=== PATIENT | male | born 1965 | race Caucasian/White ===

== ENCOUNTER 2018-11-29 08:19 | Outpatient (CLI) | payer OTHER ==
[2018-11-29 09:06] LABS: Hemoglobin 16.6 g/dL (14.0-18.0); Mean Corpuscular HGB CONC 32.2 g/dL (32.0-36.0); Mean Platelet Volume 7.6 fL (7.4-10.4); Platelet Count 270 thou/uL (130-400); Red Blood Cell (RBC) Count 5.74 mill/uL (4.70-6.10); White Blood Cell (WBC) Count 5.4 thou/uL (4.8-10.8)
[2018-11-29 09:28] LABS: Anion Gap 16 mmol/L (10-20); BUN (Urea Nitrogen) 21 mg/dL (8.4-25.7); Calc. Creatinine Clearance 0 mL/min (70-130); Calcium 10.2 mg/dL (7.8-10.44); Carbon Dioxide 22 mmol/L (22-29); Chloride 105 mmol/L (98-107); Estimated GFR-MDRD 65; Glucose 127 mg/dL (70-105); Potassium 4.5 mmol/L (3.5-5.1); Sodium 138 mmol/L (136-145)
--- NOTE | 2018-11-30 07:01 | EKG ---
Test Reason : Blood Pressure : / mmHG Vent. Rate : 097 BPM Atrial Rate : 110 BPM P-R Int : 000 ms QRS Dur : 090 ms QT Int : 346 ms P-R-T Axes : 000 050 027 degrees QTc Int : 439 ms Atrial fibrillation Possible Anterior infarct , age undetermined (Doubtful) Abnormal ECG No previous ECGs available Confirmed by REENA LAN ([id number]) on 11/30/2018 7:00:58 AM Referred By: JOHNSON Confirmed By:REENA LAN
== END 2018-11-29 08:20 | disposition home or self-care (01) ==
LOC: LABBT 08:19
PROVIDERS: ATTEND Orthopaedic Surgery
DX: Z01.818 Encounter for other preprocedural examination (principal); S43.431A Superior glenoid labrum lesion of right shoulder, initial encounter; S43.081A Other subluxation of right shoulder joint, initial encounter; M75.101 Unspecified rotator cuff tear or rupture of right shoulder, not specified as traumatic; M75.41 Impingement syndrome of right shoulder
CPT/HCPCS: 80048; 85027; 93005; 93010

== ENCOUNTER 2018-12-04 10:37 | Day surgery (SDC) | payer OTHER ==
[2018-12-04] MEDS ORDERED: Midazolam HCl 2 mg/2 ml Vial ONE (11:34)
[2018-12-04] MEDS ORDERED: Fentanyl 100 MCG/2 ML VIAL ONE (11:34)
[2018-12-04] MEDS ORDERED: Zolpidem Tartrate 5 MG TAB PO PRN (12:13)
[2018-12-04] MEDS ORDERED: Ropivacaine 0.2% 550 ML 550 ML NERVE BLCK SCH (12:13)
[2018-12-04] MEDS ORDERED: traMADol HCl 50 MG TAB PO PRN ×2 (12:13)
[2018-12-04] MEDS ORDERED: Promethazine HCl 25 MG/ML VIAL IM PRN (12:13)
[2018-12-04] MEDS ORDERED: Ondansetron PF 4 MG/2 ML Vial IVP PRN (12:13)
[2018-12-04] MEDS ORDERED: HYDROcodone/Acetaminophen 10/325 mg Tablet PO PRN ×2 (12:13)
[2018-12-04] MEDS ORDERED: Fentanyl 100 MCG/2 ML VIAL IV PRN (12:14)
[2018-12-04] MEDS ORDERED: Ropivacaine 0.2% HCl/PF (40 MG/20 ML VIAL) ONE (14:45)
[2018-12-04] MEDS ORDERED: Ropivacaine 0.5% HCl/PF (150 MG/30 ML VIAL) ONE (14:45)
[2018-12-04] MEDS ORDERED: Rocuronium Bromide 10 MG/ML (10ML VIAL) ONE (15:20)
[2018-12-04] MEDS ORDERED: Ketorolac Tromethamine 30 MG/ML VIAL ONE (15:20)
[2018-12-04] MEDS ORDERED: Dexamethasone 20 MG/5 ML VIAL ONE (15:20)
[2018-12-04] MEDS ORDERED: Ondansetron PF 4 MG/2 ML Vial ONE (15:20)
[2018-12-04] MEDS ORDERED: PROPOFOL 200 MG/20 ML VIAL ONE (15:20)
[2018-12-04] MEDS ORDERED: Metoprolol Tartrate 5 MG/5 ML VIAL ONE (15:20)
[2018-12-04] MEDS ORDERED: Glycopyrrolate 0.2 MG/ML 5 ML SYRINGE ONE (15:20)
--- NOTE | 2018-12-04 16:29 | OP ---
DATE OF PROCEDURE: 12/04/2018 PREOPERATIVE DIAGNOSES: 1. Large rotator cuff tear of the right shoulder. 2. Right biceps tendonitis. 3. Tearing of the superior and posterior labrum. POSTOPERATIVE DIAGNOSES: 1. Large rotator cuff tear of the right shoulder. 2. Right biceps tendonitis. 3. Tearing of the superior and posterior labrum. 4. [id number] arthritis of the shoulder joint. PROCEDURES PERFORMED: 1. Arthroscopy of the right shoulder with shaving of the torn labrum. 2. Open biceps tenodesis. 3. Open subacromial decompression, rotator cuff repair. ANESTHESIA: General. DESCRIPTION OF PROCEDURE: The patient was given preoperative IV antibiotics, taken to the operating room, placed in the supine position. Satisfactory general anesthesia was performed. The patient was then placed in the left lateral decubitus position. All bony prominences were well padded. The right upper extremity was placed in 15 pounds of traction. The right shoulder and arm were sterilely prepped and draped in the usual fashion. The shoulder was initially arthroscoped through the posterior portal and instrumentation through the anterior portal. The patient was noted to have fairly severe arthritis in the shoulder joint with loss of articular cartilage space in the midportion of the glenoid and portions of the humeral head. There was significant synovitis and partial synovectomy was performed. There was severe biceps tendonitis and tearing and fraying of the superior and posterior superior labrum. A shaver was used to debride the tears of the labrum. Some of the labrum had calcified and was removed with a grasper. An open biceps tenodesis was performed after detaching the biceps tendon, grabbing the biceps tendon with a suture and then tenodesis was performed using an 8-mm Arthrex screw. The subacromial space was then entered and there were significant scarring and synovitis and large rotator cuff tear from the supraspinatus. There was also multiple tears within the tear. A lateral incision was made. Deltoid muscle was split and subacromial decompression was performed by removing significant amount of bursitis. The subacromial decompression was performed using first a Bovie and ArthroWand and then a adebayo, and the rotator cuff was repaired using a double row of 4.75 Arthrex anchors and using FiberTape. This provided excellent repair of the rotator cuff. Fortunately, it had good mobility. After the repair was made, the wounds were again irrigated. The wounds were closed using 0 Vicryl for the fascia over the deltoid muscle and then 0 Vicryl for the fat and subcutaneous tissues and skin was closed with 3-0 repeat. Sterile dressing was applied. The patient was taken out of traction. He was placed in the supine position, awakened, extubated, and transferred to Recovery Room in stable condition. ESTIMATED BLOOD LOSS: Minimal. COMPLICATIONS: None. The patient will be placed in a shoulder immobilizer. He is to avoid any active range of motion of the shoulder or the elbow. DISCHARGE MEDICATIONS: Tylenol No. 4 one every 4 to 6 hours as needed for pain #50 with one refill. Follow up in my office in 1 week. Job ID: [id number]
[2018-12-04] MEDS ORDERED: Ketorolac Tromethamine 30 MG/ML VIAL IVP SCH (18:00)
== END 2018-12-04 18:30 | disposition home or self-care (01) ==
LOC: SDC 10:37
PROVIDERS: ATTEND Orthopaedic Surgery
PROC: 0LQ10ZZ Repair Right Shoulder Tendon, Open Approach (ICD-10-PCS; principal; 2018-12-04)
PROC: 0LS10ZZ Reposition Right Shoulder Tendon, Open Approach (ICD-10-PCS; principal; 2018-12-04)
DX: S46.011A Strain of muscle(s) and tendon(s) of the rotator cuff of right shoulder, initial encounter (principal); S46.111A Strain of muscle, fascia and tendon of long head of biceps, right arm, initial encounter; S43.431A Superior glenoid labrum lesion of right shoulder, initial encounter; M75.41 Impingement syndrome of right shoulder; M19.011 Primary osteoarthritis, right shoulder; G47.30 Sleep apnea, unspecified; I48.91 Unspecified atrial fibrillation; I10 Essential (primary) hypertension; E66.9 Obesity, unspecified; Z79.82 Long term (current) use of aspirin; Z79.899 Other long term (current) drug therapy; Z68.41 Body mass index [BMI] 40.0-44.9, adult
CPT/HCPCS: A4306; C1713; J1100; J1885; J2250; J2405; J2704; J2795; J3010

== ENCOUNTER 2021-10-08 12:08 | Inpatient (IN) | payer BC ==
[2021-10-08] MEDS ORDERED: Fentanyl CADD 100 ML IV SCH ×2 (12:15→14:15)
[2021-10-08 12:18] LABS: Actual Bicarbonate (HCO3a) 19.2 mEq/L (22-28); Analyzer IN Cardio ER; CO2 Tension 59.4 mmHg (35.0-45.0); Calcium, Ionized (arterial) 1.21 mmol/L (1.12-1.30); Carboxyhemoglobin (COHb) 0.5 gm% (0.0-3.0); Potassium - ABG Lab 3.63 mmol/L (3.70-5.30)
[2021-10-08 12:20] LABS: O2 Tension (PaO2), arterial 58.8 mmHg (80.0-100.0); Puncture Site RRA; pH, Arterial 7.13 (7.35-7.45)
[2021-10-08 12:59] LABS: Anion Gap 21 mmol/L (10-20); BUN (Urea Nitrogen) 21 mg/dL (8.4-25.7); Calc. Creatinine Clearance 0 mL/min (70-130); Calcium 9.7 mg/dL (7.8-10.44); Carbon Dioxide 15 mmol/L (22-29); Chloride 105 mmol/L (98-107); Glucose 269 mg/dL (70-105); Potassium 4.3 mmol/L (3.5-5.1); Sodium 137 mmol/L (136-145)
[2021-10-08] MEDS ORDERED: Ventilator Sedation Protocol 1 EACH FS SCH (13:00)
[2021-10-08] MEDS ORDERED: HUMULIN R 100 UNITS in Sodium Chloride 0.9% 100 ML IVPB SCH (13:00)
[2021-10-08] MEDS ORDERED: Norepinephrine 8 MG/0.9% NS 250 ML IVPB PRN (13:00)
[2021-10-08 13:38] LABS: Troponin I 2.123 ng/mL (< 0.028)
[2021-10-08 14:04] LABS: SARS-CoV-2 NAA Rapid Test Not Detected (NotDetected)
[2021-10-08] MEDS ORDERED: DISCONTINUE PREVIOUS NARCOTIC PAIN MEDICATIONS AND BENZODIAZEPINES FS SCH (14:15)
[2021-10-08] MEDS ORDERED: Propofol 1,000 MG/100 ML VIAL IV PRN (14:15)
[2021-10-08] MEDS ORDERED: Propofol BOLUS 1,000 MG/100 ML VIAL IV PRN (14:15)
[2021-10-08] MEDS ORDERED: Fentanyl BOLUS 250 ML IVPB PRN (14:15)
[2021-10-08] MEDS ORDERED: Lorazepam 2 MG/ML VIAL SLOW IVP PRN (14:15)
[2021-10-08] MEDS ORDERED: Morphine 2 MG/ML VIAL SLOW IVP PRN (14:15)
[2021-10-08 14:35] LABS: Acetaminophen Less than 6.0 mcg/mL (10.0-30.0); Alcohol Less than 10 mg/dL (Less than 10); Salicylate Less than 8.0 mg/dL (15.0-30.0)
[2021-10-08 14:37] LABS: ALT (SGPT) 237 U/L (8-55); AST (SGOT) 310 U/L (5-34); Albumin 3.5 g/dL (3.5-5.0); Alkaline Phosphatase 130 U/L (40-110); Anion Gap 22 mmol/L (10-20); BUN (Urea Nitrogen) 22 mg/dL (8.4-25.7); Bilirubin, Total 0.5 mg/dL (0.2-1.2); Calc. Creatinine Clearance 0 mL/min (70-130); Calcium 9.4 mg/dL (7.8-10.44); Carbon Dioxide 16 mmol/L (22-29); Chloride 104 mmol/L (98-107); Globulin 3.7 g/dL (2.4-3.5); Glucose 212 mg/dL (70-105); Potassium 3.6 mmol/L (3.5-5.1); Protein, Total 7.2 g/dL (6.0-8.3); Sodium 138 mmol/L (136-145)
[2021-10-08 14:38] LABS: Lactic Acid 9.4 mmol/L (0.5-2.2)
[2021-10-08 14:46] LABS: Troponin I 4.502 ng/mL (< 0.028)
[2021-10-08 15:29] LABS: Actual Bicarbonate (HCO3a) 15.1 mEq/L (22-28); Base Excess (BEa) -9.9 mEq/L (-2.0 to +3.0); CO2 Tension 31.7 mmHg (35.0-45.0); Calcium, Ionized (arterial) 1.14 mmol/L (1.12-1.30); Carboxyhemoglobin (COHb) 0.2 gm% (0.0-3.0); Hemoglobin (Hb) 18.6 g/dL (14.0-18.0); Potassium - ABG Lab 3.32 mmol/L (3.70-5.30); Puncture Site LRA
[2021-10-08 15:30] LABS: ALV-art Gradient 445.775 mmHg (0-20)
[2021-10-08] MEDS ORDERED: Famotidine/PF 20 mg/2ml Vial SLOW IVP SCH (15:45)
[2021-10-08] MEDS: Amiodarone 450 MG in Dextrose 5% in Water 250 ML IVPB SCH (15:56)
[2021-10-08] MEDS: Lactated Ringer's 1,000 ML IV SCH ×2 (15:57→22:57)
[2021-10-08 17:26] LABS: Amphetamine Not Detected (NotDetected); Barbiturates Screen Not Detected (NotDetected); Benzodiazepine Screen Not Detected (NotDetected); Cocaine Metabolite Screen Not Detected (NotDetected); Methadone Not Detected (NotDetected); Methamphetamine Not Detected (NotDetected); Opiate Screen Not Detected (NotDetected); Oxycodone Screen Not Detected (NotDetected); Phencyclidine (PCP) Not Detected (NotDetected); THC/Cannabinoid Screen Not Detected (NotDetected); Tricyclic Screen Not Detected (NotDetected)
[2021-10-08] MEDS ORDERED: FLU VACC QS2021-22(6MOS UP)/PF 60 MCG/0.5 ML SYRINGE IM ONE (17:30)
[2021-10-08 18:07] LABS: Lactic Acid 13.2 mmol/L (0.5-2.2)
[2021-10-08] MEDS: Famotidine/PF 20 mg/2ml Vial SLOW IVP SCH (20:12)
[2021-10-08 20:38] LABS: Troponin I 11.361 ng/mL (< 0.028)
[2021-10-09] MEDS: Amiodarone 450 MG in Dextrose 5% in Water 250 ML IVPB SCH (01:47)
[2021-10-09] MEDS: Lactated Ringer's 1,000 ML IV SCH ×2 (02:01→10:44)
[2021-10-09 04:32] LABS: ALT (SGPT) 229 U/L (8-55); AST (SGOT) 337 U/L (5-34); Albumin 3.3 g/dL (3.5-5.0); Alkaline Phosphatase 62 U/L (40-110); Anion Gap 18 mmol/L (10-20); BUN (Urea Nitrogen) 34 mg/dL (8.4-25.7); Bilirubin, Total 0.6 mg/dL (0.2-1.2); Calc. Creatinine Clearance 59 mL/min (70-130); Calcium 9.3 mg/dL (7.8-10.44); Carbon Dioxide 19 mmol/L (22-29); Chloride 105 mmol/L (98-107); Globulin 3.2 g/dL (2.4-3.5); Glucose 149 mg/dL (70-105); Potassium 4.2 mmol/L (3.5-5.1); Protein, Total 6.5 g/dL (6.0-8.3); Sodium 138 mmol/L (136-145)
[2021-10-09 05:00] LABS: Band 35 % (5-11); Hemoglobin 17.1 g/dL (14.0-18.0); Lymphocytes 11 % (21-51); MDiff Complete? YES; Mean Corpuscular HGB CONC 32.9 g/dL (32.0-36.0); Mean Corpuscular Hemoglobin 30.3 pg (27.0-31.0); Mean Platelet Volume 7.4 fL (7.4-10.4); Monocytes 6 % (0-10); Neutrophil 48 % (42-75); Platelet Count 264 thou/uL (130-400); RBC Distribution Width 12.2 % (11.5-14.5); Red Blood Cell (RBC) Count 5.63 mill/uL (4.70-6.10); White Blood Cell (WBC) Count 17.8 thou/uL (4.8-10.8)
[2021-10-09] MEDS: Famotidine/PF 20 mg/2ml Vial SLOW IVP SCH (09:14)
[2021-10-09] MEDS ORDERED: Furosemide 40 MG/4 ML VIAL IVP ONE (10:40)
[2021-10-09 10:42] VITALS: BMI 46.9
[2021-10-09 19:46] VITALS: TEMP 97
[2021-10-10 00:18] LABS: Actual Bicarbonate (HCO3a) 23.4 mEq/L (22-28); Base Excess (BEa) -3.6 mEq/L (-2.0 to +3.0); CO2 Tension 49.4 mmHg (35.0-45.0); Calcium, Ionized (arterial) 1.06 mmol/L (1.12-1.30); Carboxyhemoglobin (COHb) 1.1 gm% (0.0-3.0); Hemoglobin (Hb) 15.7 g/dL (14.0-18.0); O2 Tension (PaO2), arterial 73.9 mmHg (80.0-100.0); Potassium - ABG Lab 4.98 mmol/L (3.70-5.30); pH, Arterial 7.29 (7.35-7.45)
[2021-10-10 00:20] LABS: Puncture Site Arterial Line
[2021-10-10] MEDS ORDERED: Vasopressin 20 UNIT, Admixture Fee 1 EACH in Sodium Chloride 0.9% 50 ML IV SCH (00:30)
[2021-10-10] MEDS ORDERED: Albumin 25% 25 GM/100 ML BOT IVPB SCH (00:45)
[2021-10-10] MEDS ORDERED: Phenylephrine 40 MG, Admixture Fee 1 EACH in Sodium Chloride 0.9% 250 ML 250 ML IVPB SCH (00:45)
[2021-10-10 06:40] LABS: Actual Bicarbonate (HCO3a) 20.9 mEq/L (22-28); Base Excess (BEa) -5.2 mEq/L (-2.0 to +3.0); CO2 Tension 42.4 mmHg (35.0-45.0); Calcium, Ionized (arterial) 1.07 mmol/L (1.12-1.30); Carboxyhemoglobin (COHb) 0.9 gm% (0.0-3.0); Hemoglobin (Hb) 14.5 g/dL (14.0-18.0); O2 Tension (PaO2), arterial 228.3 mmHg (80.0-100.0); Potassium - ABG Lab 3.33 mmol/L (3.70-5.30); pH, Arterial 7.31 (7.35-7.45)
[2021-10-10 06:41] LABS: Puncture Site Arterial Line
[2021-10-10 06:43] VITALS: BP 168/100
[2021-10-10 09:06] LABS: Actual Bicarbonate (HCO3a) 16.7 mEq/L (22-28); Base Excess (BEa) -8.4 mEq/L (-2.0 to +3.0); CO2 Tension 33.4 mmHg (35.0-45.0); Calcium, Ionized (arterial) 1.09 mmol/L (1.12-1.30); Carboxyhemoglobin (COHb) 0.8 gm% (0.0-3.0); Hemoglobin (Hb) 14.2 g/dL (14.0-18.0); O2 Tension (PaO2), arterial 271.8 mmHg (80.0-100.0); Potassium - ABG Lab 3.76 mmol/L (3.70-5.30); pH, Arterial 7.32 (7.35-7.45)
[2021-10-10 09:07] LABS: Puncture Site Arterial Line
[2021-10-10 10:51] LABS: Actual Bicarbonate (HCO3a) 20.6 mEq/L (22-28); Base Excess (BEa) -6.9 mEq/L (-2.0 to +3.0); Calcium, Ionized (arterial) 1.08 mmol/L (1.12-1.30); Carboxyhemoglobin (COHb) 0.8 gm% (0.0-3.0); Hemoglobin (Hb) 14.4 g/dL (14.0-18.0); O2 Tension (PaO2), arterial 248.5 mmHg (80.0-100.0); Potassium - ABG Lab 5.22 mmol/L (3.70-5.30)
[2021-10-10] MEDS ORDERED: Sodium Bicarb 50 MEQ/50 ML Abboject 8.4% SYRINGE ONE (11:25)
[2021-10-10 15:19] LABS: pH, Arterial 7.24 (7.35-7.45)
[2021-10-10 15:20] LABS: Puncture Site Arterial Line
== END 2021-10-09 18:30 | disposition expired | DRG 308 ==
LOC: ERS 12:08 → CCU 12:51
PROVIDERS: ADMIT Internal Medicine Cardiovascular Disease; ATTEND Internal Medicine Cardiovascular Disease
PROC: 5A1945Z Respiratory Ventilation, 24-96 Consecutive Hours (ICD-10-PCS; principal; 2021-10-08)
PROC: 3E033XZ Introduction of Vasopressor into Peripheral Vein, Percutaneous Approach (ICD-10-PCS; 2021-10-08)
PROC: 06HY33Z Insertion of Infusion Device into Lower Vein, Percutaneous Approach (ICD-10-PCS; 2021-10-08)
DX: I49.01 Ventricular fibrillation (principal); K72.00 Acute and subacute hepatic failure without coma; E87.2 Acidosis; G93.1 Anoxic brain damage, not elsewhere classified; N17.9 Acute kidney failure, unspecified; Z66 Do not resuscitate; Z20.822 Contact with and (suspected) exposure to COVID-19; R79.89 Other specified abnormal findings of blood chemistry; I12.9 Hypertensive chronic kidney disease with stage 1 through stage 4 chronic kidney disease, or unspecified chronic kidney disease; E78.5 Hyperlipidemia, unspecified; I48.91 Unspecified atrial fibrillation; E11.22 Type 2 diabetes mellitus with diabetic chronic kidney disease; G47.33 Obstructive sleep apnea (adult) (pediatric); N18.9 Chronic kidney disease, unspecified; Z52.9 Donor of unspecified organ or tissue; Z79.01 Long term (current) use of anticoagulants; Z79.84 Long term (current) use of oral hypoglycemic drugs; Z79.899 Other long term (current) drug therapy; Z82.49 Family history of ischemic heart disease and other diseases of the circulatory system; Z78.1 Physical restraint status; I46.2 Cardiac arrest due to underlying cardiac condition; E11.65 Type 2 diabetes mellitus with hyperglycemia; N40.0 Benign prostatic hyperplasia without lower urinary tract symptoms
CPT/HCPCS: 0240U; 36415; 36416; 36556; 36600; 70450; 78610; 80053; 80306; 80307; 82805; 83605; 85007; 85027; 93005; 93306; 94002; 94003; 94640; 96374; 96375; A9521; J0282; J1815; J3010; J3490; J7070; J7120; J7620; P9047; S0028

== ENCOUNTER → 2021-10-09 18:30 | Day surgery (SDC) | payer OTHER ==
[~2021-10-09 18:30] MED LIST: ADMIXTURE FEE IV SCH; Albumin 25% 25 GM/100 ML BOT IVPB SCH; Albumin 5% 250 ML ONE; DEXTROSE 5% IVPB SCH; Furosemide 100 MG/10 ML VIAL SLOW IVP SCH; Hydrocortisone Sod Succ/PF 300 MG in Sodium Chloride 0.9% 250 ML 250 ML IVPB SCH; Levothyroxine 100 MCG SDV IVP SCH; Levothyroxine Sodium 400 MCG in Sodium Chloride 0.9% 100 ML IVPB SCH; Magnesium Sulfate 4 GM in Sodium Chloride 0.9% 250 ML 250 ML IVPB SCH; Phenylephrine 40 MG, Admixture Fee 1 EACH in Sodium Chloride 0.9% 250 ML 250 ML IVPB SCH; Piperacillin/Tazobactam 3.375 GM in Sodium Chloride 0.9% 100 ML IVPB SCH; Potassium Chloride 10 MEQ in Premix Bag 1 BAG IVPB SCH; Potassium Chloride 20 MEQ in Premix Bag 1 BAG IVPB SCH; Potassium Chloride 20 MEQ in Premix Bag 2 BAG IVPB SCH; Potassium Phosphate 30 MMOL in Sodium Chloride 0.9% 250 ML 250 ML IVPB SCH; SODIUM CHLORIDE IV SCH; SULFAMETHOXAZOLE IVPB SCH; Sodium Bicarb 50 MEQ/50 ML Abboject 8.4% SYRINGE IVP SCH; Sodium Bicarbonate 150 MEQ in Dextrose 5% in Water 1,000 ML IV SCH; TRIMETHOPRIM IVPB SCH; VASOPRESSIN IV SCH; Vasopressin 20 UNIT, Admixture Fee 1 EACH in Sodium Chloride 0.9% 50 ML IV SCH; WATER IVPB SCH
[2021-10-10 01:19] LABS: #Lymphocytes 0.5 thou/uL (1.20-3.40); #Monocytes 0.2 thou/uL (0.11-0.59); #Neutrophils 10.2 thou/uL (1.40-6.50); %Basophils 0.1 % (0.0-1.0); %Eosinophils 0.3 % (0.0-10.0); %Lymphocytes 4.7 % (21.0-51.0); %Monocytes 1.8 % (0.0-10.0); %Neutrophils 93.1 % (42.0-75.0); Hemoglobin 15.7 g/dL (14.0-18.0); Mean Corpuscular HGB CONC 33.5 g/dL (32.0-36.0); Mean Corpuscular Hemoglobin 30.9 pg (27.0-31.0); Mean Corpuscular Volume 92.3 fL (78.0-98.0); Mean Platelet Volume 7.9 fL (7.4-10.4); Platelet Count 173 thou/uL (130-400); RBC Distribution Width 12.4 % (11.5-14.5); Red Blood Cell (RBC) Count 5.08 mill/uL (4.70-6.10)
[2021-10-10 01:32] LABS: ALT (SGPT) 301 U/L (8-55); AST (SGOT) 272 U/L (5-34); Albumin 2.9 g/dL (3.5-5.0); Alkaline Phosphatase 56 U/L (40-110); Anion Gap 17 mmol/L (10-20); BUN (Urea Nitrogen) 46 mg/dL (8.4-25.7); Bilirubin, Total 0.4 mg/dL (0.2-1.2); Calc. Creatinine Clearance 0 mL/min (70-130); Calcium 8.2 mg/dL (7.8-10.44); Carbon Dioxide 21 mmol/L (22-29); Chloride 109 mmol/L (98-107); Globulin 3.1 g/dL (2.4-3.5); Glucose 120 mg/dL (70-105); Potassium 4.5 mmol/L (3.5-5.1); Sodium 142 mmol/L (136-145)
[2021-10-10 02:13] LABS: Bilirubin Negative (Negative); Blood, Urine 2+ (Negative); Clarity Extra Turbid (Clear); Glucose, Urine (Dipstick) Normal (Negative); Ketone, Urine Negative (Negative); Leukocyte 250 Leu/uL (Negative); Nitrite Negative (Negative); Protein, Urine (Dipstick) 100 mg/dL (Neg-Trace); Specific Gravity, Urine 1.014 (1.002-1.036); Squamous Epithelial 0-3 HPF (0-3); Transitional Epithelial 0-3 HPF (None Seen); Urobilinogen Normal mg/dL (Less than 2); WBC/HPF Greater than 50 HPF (0-3)
[2021-10-10 02:16] LABS: Bacteria/HPF 1+ HPF (None Seen)
[2021-10-10 02:24] LABS: INR-International Normal Ratio 1.5; PTT 32.6 sec (22.9-36.1); Prothrombin Time 18.7 sec (12.0-14.7)
[2021-10-10 02:31] LABS: Lactic Acid 2.8 mmol/L (0.5-2.2)
[2021-10-10 02:34] LABS: Bilirubin, Direct 0.4 mg/dL (0.1-0.3); Magnesium 1.3 mg/dL (1.6-2.6); Phosphorus 2.3 mg/dL (2.3-4.7)
[2021-10-10] MEDS: Phytonadione 10 MG in Sodium Chloride 0.9% 50 ML IVPB SCH ×2 (04:47→11:46)
[2021-10-10] MEDS: Magnesium 2 GM/50 ML 2 GM in Premix Bag 1 BAG IVPB SCH ×2 (05:49→05:56)
[2021-10-10] MEDS: Piperacillin/Tazobactam 3.375 GM in Sodium Chloride 0.9% 100 ML IVPB SCH ×3 (05:49→22:49)
[2021-10-10 07:35] VITALS: TEMP 100.1
[2021-10-10 07:48] LABS: INR-International Normal Ratio 1.6; PTT 37.1 sec (22.9-36.1); Prothrombin Time 19.5 sec (12.0-14.7)
[2021-10-10 07:55] LABS: Lactic Acid 3.9 mmol/L (0.5-2.2)
[2021-10-10 08:17] LABS: Band 28 % (5-11); Hemoglobin 13.7 g/dL (14.0-18.0); Lymphocytes 8 % (21-51); MDiff Complete? YES; Mean Corpuscular HGB CONC 32.3 g/dL (32.0-36.0); Mean Corpuscular Hemoglobin 29.9 pg (27.0-31.0); Mean Corpuscular Volume 92.4 fL (78.0-98.0); Mean Platelet Volume 8.1 fL (7.4-10.4); Metamyelocyte 1 % (0-0); Monocytes 3 % (0-10); Neutrophil 60 % (42-75); Platelet Count 115 thou/uL (130-400); Platelet Morphology Comment Appears Decreased; RBC Distribution Width 12.3 % (11.5-14.5); Red Blood Cell (RBC) Count 4.59 mill/uL (4.70-6.10); Toxic Granulation SLIGHT; Vacuoles SLIGHT; White Blood Cell (WBC) Count 9.4 thou/uL (4.8-10.8)
[2021-10-10 08:25] LABS: ALT (SGPT) 392 U/L (8-55); AST (SGOT) 439 U/L (5-34); Albumin 3.9 g/dL (3.5-5.0); Alkaline Phosphatase 56 U/L (40-110); Anion Gap 17 mmol/L (10-20); BUN (Urea Nitrogen) 45 mg/dL (8.4-25.7); Bilirubin, Direct 0.7 mg/dL (0.1-0.3); Bilirubin, Total 0.9 mg/dL (0.2-1.2); Calc. Creatinine Clearance 0 mL/min (70-130); Carbon Dioxide 20 mmol/L (22-29); Chloride 110 mmol/L (98-107); Globulin 2.4 g/dL (2.4-3.5); Glucose 154 mg/dL (70-105); Magnesium 2.3 mg/dL (1.6-2.6); Phosphorus 1.1 mg/dL (2.3-4.7); Potassium 3.5 mmol/L (3.5-5.1); Protein, Total 6.3 g/dL (6.0-8.3); Sodium 143 mmol/L (136-145)
[2021-10-10] MEDS: Hydrocortisone Sod Succ/PF 100 mg/2 ml Vial IVP SCH ×2 (09:45→17:06)
[2021-10-10] MEDS: Norepinephrine 8 MG/0.9% NS 250 ML IVPB PRN ×2 (11:20→17:50)
[2021-10-10] MEDS: Lactated Ringer's 1,000 ML IV SCH (11:37)
[2021-10-10] MEDS: Albuterol Sulfate 2.5 mg/3 ml Neb NEB SCH ×6 (11:47→23:22)
[2021-10-10 12:28] LABS: INR-International Normal Ratio 1.6; Lactic Acid 4.1 mmol/L (0.5-2.2); PTT 36.3 sec (22.9-36.1)
[2021-10-10 12:32] LABS: ALT (SGPT) 490 U/L (8-55); AST (SGOT) 570 U/L (5-34); Albumin 3.7 g/dL (3.5-5.0); Alkaline Phosphatase 52 U/L (40-110); Anion Gap 20 mmol/L (10-20); BUN (Urea Nitrogen) 43 mg/dL (8.4-25.7); Bilirubin, Direct 0.3 mg/dL (0.1-0.3); Bilirubin, Total 0.9 mg/dL (0.2-1.2); Calc. Creatinine Clearance 0 mL/min (70-130); Calcium 8.5 mg/dL (7.8-10.44); Carbon Dioxide 21 mmol/L (22-29); Chloride 108 mmol/L (98-107); Globulin 2.9 g/dL (2.4-3.5); Glucose 194 mg/dL (70-105); Magnesium 1.9 mg/dL (1.6-2.6); Phosphorus 4.2 mg/dL (2.3-4.7); Potassium 5.1 mmol/L (3.5-5.1); Protein, Total 6.6 g/dL (6.0-8.3); Sodium 144 mmol/L (136-145)
[2021-10-10 12:48] LABS: Band 23 % (5-11); Hemoglobin 13.5 g/dL (14.0-18.0); Lymphocytes 1 % (21-51); MDiff Complete? YES; Mean Corpuscular HGB CONC 33.4 g/dL (32.0-36.0); Mean Corpuscular Hemoglobin 30.7 pg (27.0-31.0); Mean Platelet Volume 8.5 fL (7.4-10.4); Monocytes 4 % (0-10); Neutrophil 72 % (42-75); Platelet Count 125 thou/uL (130-400); Platelet Morphology Comment Appears Decreased; RBC Distribution Width 12.4 % (11.5-14.5); RBC Morphology Normal; Red Blood Cell (RBC) Count 4.39 mill/uL (4.70-6.10); White Blood Cell (WBC) Count 15.9 thou/uL (4.8-10.8)
[2021-10-10] MEDS: Vasopressin 40 UNIT, Admixture Fee 1 EACH in Sodium Chloride 0.9% 98 ML IV SCH (13:34)
[2021-10-10 15:17] LABS: Actual Bicarbonate (HCO3a) 18.1 mEq/L (22-28); Base Excess (BEa) -6.4 mEq/L (-2.0 to +3.0); Calcium, Ionized (arterial) 1.02 mmol/L (1.12-1.30); Carboxyhemoglobin (COHb) 0.5 gm% (0.0-3.0); Hemoglobin (Hb) 13.6 g/dL (14.0-18.0); Potassium - ABG Lab 4.75 mmol/L (3.70-5.30); pH, Arterial 7.36 (7.35-7.45)
[2021-10-10 15:21] LABS: Puncture Site Arterial Line
[2021-10-10 17:59] LABS: Hemoglobin 13.6 g/dL (14.0-18.0); Mean Corpuscular HGB CONC 34.4 g/dL (32.0-36.0); Mean Corpuscular Hemoglobin 31.5 pg (27.0-31.0); Mean Corpuscular Volume 91.6 fL (78.0-98.0); Mean Platelet Volume 8.6 fL (7.4-10.4); Platelet Count 103 thou/uL (130-400); RBC Distribution Width 12.4 % (11.5-14.5); Red Blood Cell (RBC) Count 4.32 mill/uL (4.70-6.10); White Blood Cell (WBC) Count 11.7 thou/uL (4.8-10.8)
[2021-10-10 18:07] LABS: INR-International Normal Ratio 1.8; Prothrombin Time 21.3 sec (12.0-14.7)
[2021-10-10 18:08] LABS: PTT 36.5 sec (22.9-36.1)
[2021-10-10 18:19] LABS: Band 18 % (5-11); Lymphocytes 4 % (21-51); MDiff Complete? YES; Monocytes 3 % (0-10); Neutrophil 75 % (42-75); Platelet Morphology Comment Appears Decreased; RBC Morphology Normal
[2021-10-10 18:21] LABS: ALT (SGPT) 498 U/L (8-55); AST (SGOT) 514 U/L (5-34); Albumin 3.8 g/dL (3.5-5.0); Alkaline Phosphatase 53 U/L (40-110); Anion Gap 23 mmol/L (10-20); BUN (Urea Nitrogen) 38 mg/dL (8.4-25.7); Bilirubin, Direct 0.5 mg/dL (0.1-0.3); Bilirubin, Total 1.2 mg/dL (0.2-1.2); Calc. Creatinine Clearance 0 mL/min (70-130); Calcium 8.2 mg/dL (7.8-10.44); Carbon Dioxide 16 mmol/L (22-29); Chloride 108 mmol/L (98-107); Globulin 2.7 g/dL (2.4-3.5); Glucose 253 mg/dL (70-105); Phosphorus 5.1 mg/dL (2.3-4.7); Potassium 4.9 mmol/L (3.5-5.1); Protein, Total 6.5 g/dL (6.0-8.3); Sodium 142 mmol/L (136-145)
[2021-10-10 18:22] LABS: Lactic Acid 6.8 mmol/L (0.5-2.2)
[2021-10-10] MEDS: HUMULIN R 100 UNITS in Sodium Chloride 0.9% 100 ML IVPB SCH (20:23)
[2021-10-10 22:10] LABS: Actual Bicarbonate (HCO3a) 20.4 mEq/L (22-28); Base Excess (BEa) -5.9 mEq/L (-2.0 to +3.0); CO2 Tension 42.7 mmHg (35.0-45.0); Carboxyhemoglobin (COHb) 0.6 gm% (0.0-3.0); Hemoglobin (Hb) 13.5 g/dL (14.0-18.0); O2 Tension (PaO2), arterial 428.4 mmHg (80.0-100.0); Potassium - ABG Lab 4.38 mmol/L (3.70-5.30)
[2021-10-10 22:11] LABS: Puncture Site Arterial Line
[2021-10-10 22:13] LABS: ALV-art Gradient 231.225 mmHg (0-20)
[2021-10-10 23:04] LABS: Bilirubin Negative (Negative); Blood, Urine 3+ (Negative); Clarity Clear (Clear); Glucose, Urine (Dipstick) 500 mg/dL (Negative); Ketone, Urine Negative (Negative); Leukocyte Negative Leu/uL (Negative); Nitrite Negative (Negative); Protein, Urine (Dipstick) 50 mg/dL (Neg-Trace); Specific Gravity, Urine 1.013 (1.002-1.036); Squamous Epithelial 0-3 HPF (0-3); Urobilinogen Normal mg/dL (Less than 2)
[2021-10-10 23:22] LABS: WBC/HPF 0-3 HPF (0-3)
[2021-10-10 23:23] LABS: Bacteria/HPF 1+ HPF (None Seen)
[2021-10-11 00:08] LABS: INR-International Normal Ratio 1.7; Lactic Acid 6.8 mmol/L (0.5-2.2); PTT 38.4 sec (22.9-36.1); Prothrombin Time 20.2 sec (12.0-14.7)
[2021-10-11 00:09] LABS: ALT (SGPT) 470 U/L (8-55); AST (SGOT) 388 U/L (5-34); Albumin 3.7 g/dL (3.5-5.0); Alkaline Phosphatase 69 U/L (40-110); Anion Gap 22 mmol/L (10-20); BUN (Urea Nitrogen) 38 mg/dL (8.4-25.7); Bilirubin, Direct 0.8 mg/dL (0.1-0.3); Bilirubin, Total 1.4 mg/dL (0.2-1.2); Calc. Creatinine Clearance 0 mL/min (70-130); Calcium 8.4 mg/dL (7.8-10.44); Carbon Dioxide 18 mmol/L (22-29); Chloride 109 mmol/L (98-107); Globulin 2.7 g/dL (2.4-3.5); Glucose 245 mg/dL (70-105); Magnesium 3.2 mg/dL (1.6-2.6); Phosphorus 5.2 mg/dL (2.3-4.7); Potassium 4.6 mmol/L (3.5-5.1); Protein, Total 6.4 g/dL (6.0-8.3); Sodium 144 mmol/L (136-145)
[2021-10-11 00:46] LABS: Band 49 % (5-11); Hemoglobin 12.9 g/dL (14.0-18.0); Lymphocytes 1 % (21-51); MDiff Complete? YES; Mean Corpuscular HGB CONC 33.6 g/dL (32.0-36.0); Mean Corpuscular Hemoglobin 30.8 pg (27.0-31.0); Mean Corpuscular Volume 91.8 fL (78.0-98.0); Mean Platelet Volume 8.8 fL (7.4-10.4); Metamyelocyte 3 % (0-0); Monocytes 3 % (0-10); Myelocyte 1 % (0-0); Neutrophil 43 % (42-75); Platelet Count 81 thou/uL (130-400); Platelet Morphology Comment Appears Decreased; RBC Distribution Width 12.4 % (11.5-14.5); Red Blood Cell (RBC) Count 4.19 mill/uL (4.70-6.10); White Blood Cell (WBC) Count 14.4 thou/uL (4.8-10.8)
[2021-10-11] MEDS: Levothyroxine Sodium 400 MCG, Admixture Fee 1 EACH in Sodium Chloride 0.9% 100 ML IVPB SCH ×2 (01:45→14:15)
[2021-10-11] MEDS: Hydrocortisone Sod Succ/PF 100 mg/2 ml Vial IVP SCH ×3 (02:20→17:06)
[2021-10-11] MEDS: Albuterol Sulfate 2.5 mg/3 ml Neb NEB SCH ×6 (03:05→22:22)
[2021-10-11 03:25] LABS: Base Excess (BEa) -3.1 mEq/L (-2.0 to +3.0); CO2 Tension 39.6 mmHg (35.0-45.0); Calcium, Ionized (arterial) 1.03 mmol/L (1.12-1.30); Carboxyhemoglobin (COHb) 0.5 gm% (0.0-3.0); Hemoglobin (Hb) 12.9 g/dL (14.0-18.0); O2 Tension (PaO2), arterial 475.9 mmHg (80.0-100.0); pH, Arterial 7.36 (7.35-7.45)
[2021-10-11 03:27] LABS: Puncture Site Arterial Line
[2021-10-11] MEDS: Piperacillin/Tazobactam 3.375 GM in Sodium Chloride 0.9% 100 ML IVPB SCH ×3 (05:43→22:02)
[2021-10-11] MEDS: Vasopressin 40 UNIT, Admixture Fee 1 EACH in Sodium Chloride 0.9% 98 ML IV SCH ×2 (06:30→09:07)
[2021-10-11] MEDS: HUMULIN R 100 UNITS in Sodium Chloride 0.9% 100 ML IVPB SCH (06:30)
[2021-10-11 06:48] LABS: Hemoglobin 11.9 g/dL (14.0-18.0); Lactic Acid 4.8 mmol/L (0.5-2.2); Mean Corpuscular HGB CONC 33.6 g/dL (32.0-36.0); Mean Corpuscular Hemoglobin 30.6 pg (27.0-31.0); Mean Corpuscular Volume 91.1 fL (78.0-98.0); Mean Platelet Volume 8.8 fL (7.4-10.4); Platelet Count 87 thou/uL (130-400); RBC Distribution Width 12.4 % (11.5-14.5); White Blood Cell (WBC) Count 10.2 thou/uL (4.8-10.8)
[2021-10-11 06:49] LABS: ALT (SGPT) 395 U/L (8-55); AST (SGOT) 262 U/L (5-34); Albumin 3.4 g/dL (3.5-5.0); Alkaline Phosphatase 69 U/L (40-110); Anion Gap 17 mmol/L (10-20); BUN (Urea Nitrogen) 39 mg/dL (8.4-25.7); Bilirubin, Total 1.7 mg/dL (0.2-1.2); Calc. Creatinine Clearance 0 mL/min (70-130); Calcium 8.6 mg/dL (7.8-10.44); Carbon Dioxide 21 mmol/L (22-29); Chloride 110 mmol/L (98-107); Globulin 2.9 g/dL (2.4-3.5); Glucose 207 mg/dL (70-105); Magnesium 2.8 mg/dL (1.6-2.6); Phosphorus 3.8 mg/dL (2.3-4.7); Potassium 3.8 mmol/L (3.5-5.1); Protein, Total 6.3 g/dL (6.0-8.3); Sodium 144 mmol/L (136-145)
[2021-10-11 06:56] LABS: INR-International Normal Ratio 1.7; Prothrombin Time 19.8 sec (12.0-14.7)
[2021-10-11 06:57] LABS: PTT 39.3 sec (22.9-36.1)
[2021-10-11 08:38] LABS: Band 54 % (5-11); Lymphocytes 4 % (21-51); MDiff Complete? YES; Metamyelocyte 5 % (0-0); Monocytes 2 % (0-10); Neutrophil 35 % (42-75); Platelet Morphology Comment Appears Decreased; Polychromasia SLIGHT = 2-3 cells (100X) (0-2/hpf); Vacuoles MODERATE
[2021-10-11] MEDS: Lactated Ringer's 1,000 ML IV SCH (09:07)
[2021-10-11 10:01] LABS: Actual Bicarbonate (HCO3a) 24.8 mEq/L (22-28); Base Excess (BEa) 1.9 mEq/L (-2.0 to +3.0); Calcium, Ionized (arterial) 1.06 mmol/L (1.12-1.30); Carboxyhemoglobin (COHb) 0.5 gm% (0.0-3.0); Hemoglobin (Hb) 12.2 g/dL (14.0-18.0); O2 Tension (PaO2), arterial 105.2 mmHg (80.0-100.0); Potassium - ABG Lab 3.47 mmol/L (3.70-5.30); pH, Arterial 7.49 (7.35-7.45)
[2021-10-11 10:05] LABS: Puncture Site Arterial Line
[2021-10-11 10:19] LABS: Bacteria/HPF 2+ HPF (None Seen); Bilirubin Negative (Negative); Blood, Urine 3+ (Negative); Clarity Turbid (Clear); Glucose, Urine (Dipstick) 50 mg/dL (Negative); Ketone, Urine Negative (Negative); Leukocyte Negative Leu/uL (Negative); Nitrite Negative (Negative); Protein, Urine (Dipstick) 100 mg/dL (Neg-Trace); Squamous Epithelial None Seen HPF (0-3); Urobilinogen Normal mg/dL (Less than 2); pH, Urine 5.5 (5.0-9.0)
[2021-10-11 12:20] LABS: Hemoglobin 12.1 g/dL (14.0-18.0); Mean Corpuscular Hemoglobin 30.3 pg (27.0-31.0); Mean Corpuscular Volume 91.8 fL (78.0-98.0); Mean Platelet Volume 8.5 fL (7.4-10.4); Platelet Count 84 thou/uL (130-400); RBC Distribution Width 12.2 % (11.5-14.5); Red Blood Cell (RBC) Count 3.99 mill/uL (4.70-6.10)
[2021-10-11 12:23] LABS: INR-International Normal Ratio 1.6
[2021-10-11 12:24] LABS: PTT 38.4 sec (22.9-36.1)
[2021-10-11 12:26] LABS: Band 59 % (5-11); Lymphocytes 2 % (21-51); MDiff Complete? YES; Metamyelocyte 9 % (0-0); Monocytes 2 % (0-10); Neutrophil 27 % (42-75); Platelet Morphology Comment Appears Decreased; Polychromasia SLIGHT = 2-3 cells (100X) (0-2/hpf); Reactive Lymphocytes 1 % (0-10); Vacuoles MODERATE
[2021-10-11 12:35] LABS: Lactic Acid 2.6 mmol/L (0.5-2.2)
[2021-10-11 12:52] LABS: ALT (SGPT) 350 U/L (8-55); AST (SGOT) 209 U/L (5-34); Albumin 3.4 g/dL (3.5-5.0); Alkaline Phosphatase 78 U/L (40-110); Anion Gap 15 mmol/L (10-20); BUN (Urea Nitrogen) 41 mg/dL (8.4-25.7); Bilirubin, Direct 1.3 mg/dL (0.1-0.3); Calc. Creatinine Clearance 0 mL/min (70-130); Calcium 8.8 mg/dL (7.8-10.44); Carbon Dioxide 24 mmol/L (22-29); Chloride 112 mmol/L (98-107); Globulin 2.7 g/dL (2.4-3.5); Glucose 131 mg/dL (70-105); Magnesium 2.8 mg/dL (1.6-2.6); Phosphorus 2.5 mg/dL (2.3-4.7); Potassium 3.5 mmol/L (3.5-5.1); Protein, Total 6.1 g/dL (6.0-8.3); Sodium 147 mmol/L (136-145)
[2021-10-11 13:51] LABS: Actual Bicarbonate (HCO3a) 22.2 mEq/L (22-28); Base Excess (BEa) -1.2 mEq/L (-2.0 to +3.0); CO2 Tension 33.2 mmHg (35.0-45.0); Calcium, Ionized (arterial) 1.01 mmol/L (1.12-1.30); Carboxyhemoglobin (COHb) 0.2 gm% (0.0-3.0); Hemoglobin (Hb) 11.6 g/dL (14.0-18.0); O2 Tension (PaO2), arterial 181.8 mmHg (80.0-100.0); Potassium - ABG Lab 3.78 mmol/L (3.70-5.30); pH, Arterial 7.44 (7.35-7.45)
[2021-10-11 13:57] LABS: Puncture Site Arterial Line
[2021-10-11 15:53] VITALS: BP 145/79
[2021-10-11] MEDS: Potassium Chloride 10 MEQ in Premix Bag 1 BAG IVPB SCH (16:42)
[2021-10-11 17:18] LABS: Mean Corpuscular HGB CONC 33.3 g/dL (32.0-36.0); Mean Corpuscular Hemoglobin 30.5 pg (27.0-31.0); Mean Corpuscular Volume 91.7 fL (78.0-98.0); Mean Platelet Volume 8.2 fL (7.4-10.4); Platelet Count 86 thou/uL (130-400); RBC Distribution Width 12.3 % (11.5-14.5); Red Blood Cell (RBC) Count 3.94 mill/uL (4.70-6.10); White Blood Cell (WBC) Count 8.1 thou/uL (4.8-10.8)
[2021-10-11 17:42] LABS: PTT 36.8 sec (22.9-36.1)
[2021-10-11 17:44] LABS: Lactic Acid 2.7 mmol/L (0.5-2.2)
[2021-10-11 17:55] LABS: INR-International Normal Ratio 1.7; Prothrombin Time 20.1 sec (12.0-14.7)
[2021-10-11 18:01] LABS: ALT (SGPT) 319 U/L (8-55); AST (SGOT) 172 U/L (5-34); Albumin 3.3 g/dL (3.5-5.0); Alkaline Phosphatase 104 U/L (40-110); Anion Gap 13 mmol/L (10-20); BUN (Urea Nitrogen) 43 mg/dL (8.4-25.7); Bilirubin, Direct 1.6 mg/dL (0.1-0.3); Bilirubin, Total 2.3 mg/dL (0.2-1.2); Calc. Creatinine Clearance 0 mL/min (70-130); Calcium 8.7 mg/dL (7.8-10.44); Carbon Dioxide 26 mmol/L (22-29); Chloride 111 mmol/L (98-107); Globulin 2.8 g/dL (2.4-3.5); Glucose 151 mg/dL (70-105); Magnesium 2.8 mg/dL (1.6-2.6); Phosphorus 3.8 mg/dL (2.3-4.7); Potassium 3.6 mmol/L (3.5-5.1); Protein, Total 6.1 g/dL (6.0-8.3); Sodium 146 mmol/L (136-145)
[2021-10-11 18:04] LABS: Band 54 % (5-11); Lymphocytes 4 % (21-51); MDiff Complete? YES; Monocytes 2 % (0-10); Neutrophil 38 % (42-75); Platelet Morphology Comment Appears Decreased; RBC Morphology Normal; Reactive Lymphocytes 2 % (0-10)
[2021-10-11 18:57] LABS: Actual Bicarbonate (HCO3a) 26.1 mEq/L (22-28); Base Excess (BEa) -0.3 mEq/L (-2.0 to +3.0); CO2 Tension 49.7 mmHg (35.0-45.0); Carboxyhemoglobin (COHb) 0.6 gm% (0.0-3.0); Hemoglobin (Hb) 12.8 g/dL (14.0-18.0); O2 Tension (PaO2), arterial 131.8 mmHg (80.0-100.0); Potassium - ABG Lab 3.78 mmol/L (3.70-5.30); pH, Arterial 7.34 (7.35-7.45)
[2021-10-11 18:59] LABS: ALV-art Gradient 519.075 mmHg (0-20); Puncture Site Arterial Line
[2021-10-11 22:07] LABS: Bilirubin Negative (Negative); Blood, Urine 3+ (Negative); Clarity Turbid (Clear); Glucose, Urine (Dipstick) >=1000 mg/dL (Negative); Ketone, Urine Negative (Negative); Leukocyte 25 Leu/uL (Negative); Mucous/LPF Rare LPF (<2+); Nitrite Negative (Negative); Protein, Urine (Dipstick) 100 mg/dL (Neg-Trace); Renal Epithelial 0-3 HPF (None Seen); Specific Gravity, Urine 1.018 (1.002-1.036); Squamous Epithelial 0-3 HPF (0-3); Urobilinogen Normal mg/dL (Less than 2); pH, Urine 5.5 (5.0-9.0)
[2021-10-11 22:26] LABS: Bacteria/HPF 2+ HPF (None Seen)
[2021-10-11 23:34] LABS: Actual Bicarbonate (HCO3a) 20.6 mEq/L (22-28); Base Excess (BEa) -5.7 mEq/L (-2.0 to +3.0); CO2 Tension 43.3 mmHg (35.0-45.0); Carboxyhemoglobin (COHb) 0.5 gm% (0.0-3.0); Hemoglobin (Hb) 12.7 g/dL (14.0-18.0); O2 Tension (PaO2), arterial 232.7 mmHg (80.0-100.0); Potassium - ABG Lab 3.15 mmol/L (3.70-5.30)
[2021-10-12 00:30] LABS: ALV-art Gradient 426.175 mmHg (0-20); Puncture Site Arterial Line
[2021-10-12 00:56] LABS: Actual Bicarbonate (HCO3a) 24.7 mEq/L (22-28); Base Excess (BEa) -0.8 mEq/L (-2.0 to +3.0); CO2 Tension 44.3 mmHg (35.0-45.0); Calcium, Ionized (arterial) 1.09 mmol/L (1.12-1.30); Carboxyhemoglobin (COHb) 0.3 gm% (0.0-3.0); Hemoglobin (Hb) 12.2 g/dL (14.0-18.0); O2 Tension (PaO2), arterial 343.9 mmHg (80.0-100.0); pH, Arterial 7.36 (7.35-7.45)
[2021-10-12 01:02] LABS: Puncture Site Arterial Line
[2021-10-12 01:06] LABS: ALV-art Gradient 313.725 mmHg (0-20)
[2021-10-12] MEDS: Hydrocortisone Sod Succ/PF 100 mg/2 ml Vial IVP SCH (01:47)
[2021-10-12] MEDS: Levothyroxine Sodium 400 MCG, Admixture Fee 1 EACH in Sodium Chloride 0.9% 100 ML IVPB SCH (01:47)
[2021-10-12 01:52] LABS: Hemoglobin 11.9 g/dL (14.0-18.0); Mean Corpuscular HGB CONC 33.8 g/dL (32.0-36.0); Mean Corpuscular Hemoglobin 31.2 pg (27.0-31.0); Mean Corpuscular Volume 92.3 fL (78.0-98.0); Platelet Count 70 thou/uL (130-400); RBC Distribution Width 12.4 % (11.5-14.5); White Blood Cell (WBC) Count 10.6 thou/uL (4.8-10.8)
[2021-10-12 02:03] LABS: INR-International Normal Ratio 1.5; PTT 36.9 sec (22.9-36.1); Prothrombin Time 18.4 sec (12.0-14.7)
[2021-10-12 02:08] LABS: Band 38 % (5-11); MDiff Complete? YES; Metamyelocyte 3 % (0-0); Monocytes 2 % (0-10); Neutrophil 57 % (42-75); Platelet Morphology Comment Appears Decreased; Polychromasia SLIGHT = 2-3 cells (100X) (0-2/hpf); Toxic Granulation SLIGHT; Vacuoles SLIGHT
[2021-10-12 02:23] LABS: Albumin 3.2 g/dL (3.5-5.0); Anion Gap 14 mmol/L (10-20); BUN (Urea Nitrogen) 44 mg/dL (8.4-25.7); Bilirubin, Direct 1.6 mg/dL (0.1-0.3); Bilirubin, Total 2.1 mg/dL (0.2-1.2); Calc. Creatinine Clearance 0 mL/min (70-130); Calcium 8.9 mg/dL (7.8-10.44); Carbon Dioxide 25 mmol/L (22-29); Chloride 110 mmol/L (98-107); Glucose 225 mg/dL (70-105); Protein, Total 6.1 g/dL (6.0-8.3); Sodium 146 mmol/L (136-145)
[2021-10-12 02:24] LABS: ALT (SGPT) 276 U/L (8-55); AST (SGOT) 125 U/L (5-34); Alkaline Phosphatase 105 U/L (40-110); Globulin 2.9 g/dL (2.4-3.5); Phosphorus 2.2 mg/dL (2.3-4.7)
[2021-10-12 02:25] LABS: Lactic Acid 4.2 mmol/L (0.5-2.2)
[2021-10-12] MEDS: Albuterol Sulfate 2.5 mg/3 ml Neb NEB SCH (02:28)
[2021-10-12 03:17] LABS: Magnesium 2.7 mg/dL (1.6-2.6)
== END | disposition expired ==
LOC: SDC/OP 18:30 → CCU 10-10 20:18
PROC: 03HY32Z Insertion of Monitoring Device into Upper Artery, Percutaneous Approach (ICD-10-PCS; principal; 2021-10-09)
DX: J96.90 Respiratory failure, unspecified, unspecified whether with hypoxia or hypercapnia; I08.1 Rheumatic disorders of both mitral and tricuspid valves; J90 Pleural effusion, not elsewhere classified; Z52.9 Donor of unspecified organ or tissue
CPT/HCPCS: 36415; 36416; 36430; 80053; 81001; 82248; 82805; 83605; 83735; 84100; 85025; 85060; 85384; 85610; 85730; 86850; 86900; 86901; 87205; 94003; 94640; J1720; J1815; J2370; J2543; J3430; J3475; J3480; J3490; J7050; J7070; J7120; J7611; P9035; P9045; P9047; P9059